=== PATIENT | male | born 1940 | race Two or more races ===

== ENCOUNTER 2023-08-11 07:14 | Outpatient (CLI) | payer OTHER ==
[~2023-08-11 07:14] MED LIST: LEVOTHYROXINE25 MCG PO; MONTELUKAST SODI4 M1
== END 2023-08-11 10:31 | disposition home or self-care (01) ==
LOC: LAB 07:14
PROVIDERS: ATTEND Internal Medicine Hematology & Oncology
DX: D50.8 Other iron deficiency anemias (principal); R79.9 Abnormal finding of blood chemistry, unspecified; I10 Essential (primary) hypertension; R74.02 Elevation of levels of lactic acid dehydrogenase [LDH]; K76.89 Other specified diseases of liver; D51.8 Other vitamin B12 deficiency anemias; C25.9 Malignant neoplasm of pancreas, unspecified; R97.8 Other abnormal tumor markers; R97.0 Elevated carcinoembryonic antigen [CEA]; R97.20 Elevated prostate specific antigen [PSA]; Z80.3 Family history of malignant neoplasm of breast; Z80.0 Family history of malignant neoplasm of digestive organs; C61 Malignant neoplasm of prostate; D55.0 Anemia due to glucose-6-phosphate dehydrogenase [G6PD] deficiency; D70.2 Other drug-induced agranulocytosis; D51.1 Vitamin B12 deficiency anemia due to selective vitamin B12 malabsorption with proteinuria; D70.8 Other neutropenia; D59.8 Other acquired hemolytic anemias; G30.0 Alzheimer's disease with early onset; K86.2 Cyst of pancreas; K29.40 Chronic atrophic gastritis without bleeding; E03.9 Hypothyroidism, unspecified; E06.3 Autoimmune thyroiditis; N40.1 Benign prostatic hyperplasia with lower urinary tract symptoms